=== PATIENT | male | born 1960 | race Asian ===

== ENCOUNTER 2017-04-15 11:15 | Inpatient (IN) | payer BC ==
[2017-05-13] MEDS ORDERED: morphINE PF 5 MG/10 ML INJ IT ONE (08:00)
[2017-05-13] MEDS ORDERED: GABAPENTIN 300 MG CAP PO ONE ×2 (08:00→10:30)
[2017-05-13] MEDS ORDERED: ceFAZolin 2 GM/SWFI 2 GM/20 ML SYR IVP ONE (08:00)
[2017-05-13] MEDS ORDERED: ACETAMINOPHEN 500 MG TAB PO ONE ×2 (08:00→10:30)
[2017-05-13] MEDS ORDERED: BUPIVACAINE 0.25% 30 ML SDV ONE (09:13)
[2017-05-13] MEDS ORDERED: CHLORHEXIDINE GLUC HIBICLENS 118 ML BTL TP ONE (09:14)
[2017-05-13] MEDS ORDERED: THROMBIN (BOVINE) 20,000 UNIT VIAL TP ONE (09:14)
[2017-05-13] MEDS ORDERED: CITRATE DEXTROSE SOLN 500 ML BAG ONE (09:15)
[2017-05-13] MEDS ORDERED: BACITRACIN 50,000 UNITS/10 ML SYR IRR ONE (09:15)
[2017-05-13] MEDS ORDERED: LIDOCAINE 1% 2 ML INJ ID PRN (10:15)
[2017-05-13] MEDS ORDERED: LR 1,000 ML IV ONE (10:15)
[2017-05-13] MEDS ORDERED: ceFAZolin 2 GM/SWFI 20 ML SYR IVP ONE (10:30)
--- NOTE | 2017-05-13 11:01 | PDHPUP ---
History & Physical Update H&P update statement: This history and physical update is based on an assessment of the patient which was completed after admission or registration (within 24 hours), but prior to the surgery/procedure. H&P update: H&P reviewed & patient examined, no change in patient's condition since H&P completed (Consents signed and site marked. All questions answered. )
[2017-05-13] MEDS ORDERED: SCOPOLAMINE HYDROBROMIDE 1 MG/3 DAYS PATCH TD ONE (11:18)
[2017-05-13] MEDS ORDERED: MIDAZOLAM 2 MG/2 ML VIAL IVP ONE (11:18)
--- NOTE | 2017-05-13 11:20 | PDANEPAE ---
ANE History of Present Illness spinal stenosis ANE Past Medical History - Cardiovascular History Hx Hypertension: Yes Hx Arrhythmias: No Hx Chest Pain: No Hx Coronary Artery / Peripheral Vascular Disease: No Hx CHF / Valvular Disease: No Hx Palpitations: No Cardiovascular History Comment: mild HTN x 10 yrs. - Pulmonary History Hx COPD: No Hx Asthma/Reactive Airway Disease: No Hx Recent Upper Respiratory Infection: No Hx Oxygen in Use at Home: No Hx Sleep Apnea: No Sleep Apnea Screening Result - Last Documented: Negative - Neurologic History Hx Cerebrovascular Accident: No Hx Seizures: No Hx Dementia: No - Endocrine History Hx Diabetes: No - Renal History Hx Renal Disorders: No - Liver History Hx Hepatic Disorders: No - Neurological & Psychiatric Hx Hx Neurological and Psychiatric Disorders: Yes Neurological / Psychiatric History Comment: 6 mos s/p L4/L5 fusion pronounced numbness L leg to front of L ft; sl less numbness down R leg to R heel. Atrophied muscles-legs. - Cancer History Hx Cancer: No - Congenital Disorder History Hx Congenital Disorders: No - GI History Hx Gastrointestinal Disorders: No - Other Health History Other Health History: "finger tips -crack"-winter dryness - Chronic Pain History Chronic Pain: Yes (front L ft/leg muscles) - Surgical History Prior Surgeries: L4/L5 fusion 2-14 ANE Review of Systems Review of Systems: - Exercise capacity METS (RN): 4 METS ANE Patient History - Allergies Allergies/Adverse Reactions: No Known Allergies Allergy (Verified 03/26/17 15:16) - Home Medications Home Medications: Aspirin [Aspirin 81mg (*)] 81 mg PO DAILY 03/25/17 [Last Taken 03/18/17] Ibuprofen [Motrin (*)] 200 mg PO BID PRN 03/25/17 [Last Taken 05/06/17] Lisinopril [Zestril 10 mg (*)] 10 mg PO DAILY 03/25/17 [Last Taken 05/12/17 07: 00] - NPO status NPO Since - Liquids (Date): 05/13/17 NPO Since - Liquids (Time): 08:00 NPO Since - Solids (Date): 05/12/17 NPO Since - Solids (Time): 20:00 - Smoking Hx Smoking Status: Never smoked ANE Labs/Vital Signs - Vital Signs Blood Pressure: 146/83 Heart Rate: 89 Respiratory Rate: 18 O2 Sat (%): 94 Height: 173.99 cm Weight: 83.915 kg ANE Physical Exam - Airway Neck exam: FROM Mallampati Score: Class 2 Mouth exam: normal dental/mouth exam - Pulmonary Pulmonary: no respiratory distress - Cardiovascular Cardiovascular: regular rate and rhythym - ASA Status ASA Status: II ANE Anesthesia Plan Anesthesia Plan: general endotracheal anesthesia Lines/Monitors: arterial line
[2017-05-13] MEDS ORDERED: fentaNYL 100 MCG/2 ML INJ ONE ×3 (11:42→16:32)
[2017-05-13] MEDS ORDERED: HYDROmorphONE/DILAUDID 2 MG/ML INJ ONE (11:42)
[2017-05-13] MEDS ORDERED: PROPOFOL 200 MG/20 ML VIAL ONE (11:43)
[2017-05-13] MEDS ORDERED: KETAMINE 200 MG/20 ML VIAL ONE (12:14)
[2017-05-13] MEDS ORDERED: PROPOFOL/EMULSION 500 MG/50 ML BOTTLE IV ONE ×2 (12:14→14:50)
[2017-05-13] MEDS ORDERED: PHENYLEPHRINE HCL 100 MCG/ML SYR ONE (15:24)
[2017-05-13] MEDS ORDERED: ONDANSETRON 4 MG/2 ML VIAL ONE (15:25)
[2017-05-13] MEDS ORDERED: DEXAMETHASONE 4 MG/ML VIAL ONE (15:25)
[2017-05-13] MEDS ORDERED: PHENYLEPHRINE 10 MG/ML SDV ONE (15:25)
[2017-05-13] MEDS ORDERED: ROCURONIUM 50 MG/5 ML VIAL ONE (15:25)
[2017-05-13] MEDS ORDERED: OXYCODONE/APAP 5/325 TAB PO PRN (15:36)
[2017-05-13] MEDS ORDERED: ONDANSETRON 4 MG/2 ML VIAL IVP PRN ×2 (15:36→16:13)
[2017-05-13] MEDS ORDERED: NALOXONE HCL 0.4 MG/ML INJ IVP PRN (15:36)
[2017-05-13] MEDS ORDERED: PROMETHAZINE HCL 25 MG/ML INJ IVP PRN (15:36)
[2017-05-13] MEDS ORDERED: POLYETHYLENE GLYCOL 3350 17 GM PKT PO PRN (16:13)
[2017-05-13] MEDS ORDERED: MAGNESIUM HYDROXIDE 30 ML UDCUP PO PRN (16:13)
[2017-05-13] MEDS ORDERED: ONDANSETRON DISINTEGRATING 4 MG TAB PO PRN (16:13)
[2017-05-13] MEDS ORDERED: BISACODYL 10 MG SUPP PR PRN (16:13)
[2017-05-13] MEDS ORDERED: LACTULOSE 20 GM/30 ML UDCUP PO PRN (16:13)
[2017-05-13] MEDS ORDERED: HYDROmorphONE/DILAUDID 1 MG/ML INJ IVP PRN (16:13)
[2017-05-13] MEDS ORDERED: diphenhydrAMINE 25 MG CAP PO PRN (16:13)
[2017-05-13] MEDS ORDERED: NS W/ 20 KCl/L 1,000 ML IV SCH (16:15)
--- NOTE | 2017-05-13 16:19 | POSTANESTH ---
Post Anesthetic Evaluation Cardiovascular Status: Normal, Stable Respiratory Status: Normal, Stable Level of Consciousness/Mental Status: Can Participate in Eval Pain Control: Adequate, Prn Tx Ordered Nausea/Vomiting Control: Adequate, Prn Tx Ordered Complications Possibly Related to Anesthesia: None Noted
--- NOTE | 2017-05-13 16:25 | POSTOPPROG ---
Post Op Note Date of Operation: 05/13/17 Surgeon: Jose Coronado Wage Conciliator: Genie Moreau PA-C Anesthesiologist: Mark Anesthesia: GET(General Endotracheal) Pre-op Diagnosis: lumbar stenosis Post-op Diagnosis: same Indication: nerve compression, radiculopathy Procedure: L45 hardware removal, L2-4 laminectomy, TLIFs, posterior fusion Findings: See dictation Inf/Abcess present in the surg proc area at time of surgery?: No Depth: Organ Space EBL: 100-500 Complications: none Drains: Adan Cox Specimen(s): hardware swab sent for culture PA Addendum - Addendum .: S: Pt awake in PACU, denies pain O: Groggy but awakens easily Answers questions appropriately NAD VSS MAEx4 Motor 5/5 BUE/BLE +LT Incision dressed cdi [id number] Castellano A: 56 yo M s/p L45 hardware removal, L2-4 laminectomy, TLIFs, posterior fusion P: PT/OT Pain management Brace when OOB TEDs, SCDs, lovenox POD#1 Post op xrays pending BRIEN castellano in AM Monitor BILLY output Call NS with any issues D/w Dr Coronado
[2017-05-13] MEDS ORDERED: HYDROmorphONE/DILAUDID 1 MG/ML INJ ONE (16:31)
[2017-05-13] MEDS: HYDROmorphONE/DILAUDID 1 MG/ML INJ IVP PRN ×2 (16:34→16:55)
[2017-05-13] MEDS: fentaNYL 100 MCG/2 ML INJ IVP PRN ×2 (16:45→17:09)
[2017-05-13] MEDS: POLYETHYLENE GLYCOL 3350 17 GM PKT PO SCH (21:24)
[2017-05-13] MEDS: ACETAMINOPHEN 500 MG TAB PO SCH (21:24)
[2017-05-13] MEDS: FAMOTIDINE 20 MG TAB PO SCH (21:24)
[2017-05-13] MEDS: SENNOSIDES/DOCUSATE SODIUM TAB PO SCH (21:24)
[2017-05-13] MEDS: ceFAZolin 2 GM/SWFI 2 GM/20 ML SYR IVP SCH (21:24)
[2017-05-13] MEDS ORDERED: ceFAZolin 2 GM/DEXTROSE 100 ML IV SCH (22:00)
--- NOTE | 2017-05-14 02:06 | GOP ---
[f rep st] OPERATIVE REPORT DATE OF OPERATION: 05/13/2017 SURGEON: Jose Coronado MD COW TESTER: Delfina Moreau, SURAJ. ANESTHESIA: General. PREOPERATIVE DIAGNOSIS: 1. Adjacent level breakdown, L2-L3, L3-L4, with history of prior spinal fusion, L4-L5. 2. Lumbar spondylosis, spinal stenosis, lower extremity radiculopathy. 3. Treatment refractory to nonoperative intervention. POSTOPERATIVE DIAGNOSIS: 1. Adjacent level breakdown, L2-L3, L3-L4, with history of prior spinal fusion, L4-L5. 2. Lumbar spondylosis, spinal stenosis, lower extremity radiculopathy. 3. Treatment refractory to nonoperative intervention. PROCEDURE PERFORMED: 1. Posterior arthrodesis with approach to L2, L3, L4, L5. 2. Posterolateral fusion with bilateral pedicle screw placement into L2, L3, and L4, with the [employer] Solera 4.75 system. 3. Exploration and removal of prior lumbar nonsegmental hardware at L4 and L5 from the [employer] system. 4. Posterolateral fusion on the right between L2 and L4 with morselized autograft and allograft. 5. Decompressive laminectomy with bilateral medial facetectomies, L2-L3, L3-L4. 6. Left-sided L2-L3 transforaminal lumbar interbody fusion with an 8 x 28 mm titanium PEEK elevated cage filled with morselized autograft. 7. Left-sided L3-L4 transforaminal lumbar interbody fusion with a 9 x 28 mm titanium PEEK elevated c age with morselized autograft. 8. Use of intraoperative 3D Stealth navigation. 9. Use of intraoperative fluoroscopy, less than 1 hour physician time. 10. Use of neuromonitoring. 11. Use of operating microscope. 12. Injection of preservative-free intrathecal narcotics. FINDINGS: SPECIMENS: Cultures were taken from the patient's old hardware and sent to Microbiology. ESTIMATED BLOOD LOSS: 200 mL. INDICATIONS: Mr. Gutierres is a 56-year-old gentleman who has undergone a prior L4-L5 fusion several years ago from which he did quite well. He presented with lower extremity radiculopathy, left greate r than right; evidence of severe spinal stenosis, L3-L4; and moderate to severe stenosis, L2-L3, with spondylosis L2 through L4. After discussion of risks, benefits, and alternatives, after failing non operative intervention, we decided to proceed forth with surgery as described above. DESCRIPTION OF PROCEDURE: Patient was brought to the operating theater and underwent general endotra cheal anesthesia without complications. He had Venodynes, DAVIAN hose, and the appropriate lines placed by Anesthesia. He was then flipped prone onto the Adan table, and all bony processes inspected a nd padded. The lower lumbar region incorporating his prior lumbar incision was identified and marked , and incision then infiltrated with Marcaine with epinephrine. The incision was taken down initiall y with the scalpel blade, and then using monopolar, taken down through the midline through the lumbod orsal fascia. Subperiosteal dissection carried out to the transverse process of L2, L3. At the leve l of L4, we were able to expose the prior pedicle screws at L4 and then subsequently exposed the flakita bridger of the hardware down to L5. Deep retractors were placed to maintain our exposure, and we confi rmed our level using lateral fluoroscopy. At this point, we removed the sequential cap screws at jarett ateral L4 and L5 levels and passed them off the field. We then removed the bilateral rods between L4 -L5 and passed them off the field. We then explored the hardware, and he was noted to be solidly fus ed upon a trial of distraction there. We subsequently removed the bilateral L4 and L5 pedicle screws and replaced the bilateral L4 screws with 7.5 x 40 mm screw, on the left at L4 with 7.5 x 45 mm scre w, on the right at L4 from [employer] Solera 4.75 system. We attached the 3D Stealth navigation clamp to the spinous process of L4 and completed a 3D Stealth navigation spin. Using 3D Stealth navigatio n, we placed the airplane pilot crop dusting holes for the bilateral pedicle screws at L2, L3. All holes were manually pal pated with no CT cortical breaches. We then tapped and placed 6.5 x 50 mm screw bilaterally in L2 an d L3 from the [employer] Solera 4.75 system. Another 3D Stealth navigation spin demonstrated good andrés cement of the hardware. At this point, the microscope was brought into field to assist with microsco pic dissection and maintain illumination and magnification. Using a combination of bur tip on the dr ill bit, Kerrison punches, and [place]ell rongeur, we completed a decompressive laminectomy with bilater al medial facetectomies, L2-L3 and L3-L4. We completed aggressive facetectomies on the left side at L2-L3 and L3-L4 and foraminotomies and unroofed both of the nerves between the L2-L3 and L3-4 foramin a. When I moved up to L2-L3, we distracted the L2-3 disk space and completed a left-sided L2-3 diske ctomy. We prepared the cartilaginous endplates and measured interbody space. We then placed an 8 x 28 mm titanium PEEK elevated cage with morselized autograft anteriorly toward the midline. We packed additional morcellized autograft in the disk space interbody fusion. We let down distraction, moved down to L3-L4 where we distracted the L3-L4 disk space and completed a left-sided L3-L4 diskectomy. We prepared the cartilaginous endplates and measured interbody space. We then placed a 9 x 28 mm ti tanium PEEK elevated cage with morselized autograft anteriorly toward the midline. We packed additio nal morcellized autograft into the disk space interbody fusion. At this point, we let down the distr action, decorticated on the right side between L2 and L4. We placed 2 lordotic rods into the heads o f the screws between L2 and L4 and carried them down with cap screws, which were then tightened per [employer] manufacture's setting. The wound was irrigated copiously with bacitracin irrigation. We injected preservative-free intrathecal narcotics. Left morselized autograft and allograft on the right side between L2 and L4 from the posterolateral fusion. A drain was left in the subfascial space. The wou nd was then closed in multiple layers using Vicryl sutures in the deep layers and Dermabond for the s kin. Patient's wounds were dressed sterilely. He was then flipped supine onto the transfer cart, wh ere he was awakened, extubated, and taken to the recovery room in stable condition. There were no complications and no noted changes on neuromonitoring throughout the procedure. COMPLICATIONS: None. /[id number]/MODL
[2017-05-14] MEDS: ceFAZolin 2 GM/SWFI 2 GM/20 ML SYR IVP SCH (03:09)
[2017-05-14] MEDS: ACETAMINOPHEN 500 MG TAB PO SCH ×3 (05:56→22:04)
--- NOTE | 2017-05-14 08:49 | SOAPPROG ---
SOAP Progress Note Assessment/Plan: Assessment: 57 yo M POD #1 L4/5 hardware removal and L2-L4 TLIF Plan: stable and doing great overall :) PT/OT keep BILLY x-rays today scd/jon/lovenox for dvt prophylaxis likely dc home tomorrow please call with neuro changes discussed with Dr Coronado 05/14/17 08:47 Subjective: soreness in back, no leg pain, continued general leg weakness. Objective: Vital Signs Temp Pulse Resp BP Pulse Ox 36.9 C 73 16 94/70 L 97 05/14/17 07:22 05/14/17 07:22 05/14/17 07:22 05/14/17 07:22 05/14/17 07:22 Microbiology 05/13/17 12:54 Gram Stain - Final Back - Eswab 05/13/17 05/14/17 05/15/17 05:59 05:59 05:59 Intake Total 3060 800 Output Total 625 1400 Balance 2435 -600 AAOx4, +FC PERRL, EOMI, no facial droop 5/5 + light touch C/D/I ICD10 Worksheet Patient Problems: Problems Problem Status Onset Fusion of spine of lumbar region Acute - ICD10 Problem Qualifiers (1) Fusion of spine of lumbar region
[2017-05-14] MEDS: FAMOTIDINE 20 MG TAB PO SCH ×2 (09:20→22:03)
[2017-05-14] MEDS: oxyCODONE IR 5 MG TAB PO PRN ×4 (09:23→22:02)
[2017-05-14] MEDS: LISINOPRIL 10 MG TAB PO SCH (09:30)
[2017-05-14] MEDS: POLYETHYLENE GLYCOL 3350 17 GM PKT PO SCH ×3 (09:32→22:50)
[2017-05-14] MEDS: SENNOSIDES/DOCUSATE SODIUM TAB PO SCH ×2 (09:32→22:03)
[2017-05-14] MEDS ORDERED: PATCH REMOVAL 1 EA PATCH TD ONE (11:30)
--- NOTE | 2017-05-14 15:00 | ASMTCMCOM ---
CM Note CM Note Notes: Pt POD #1 hardware removal and TKIF. OT rec home, PT eval pending. Pt resides with . CM to follow for d/c needs. Date Signed: 05/14/2017 02:46 PM Electronically Signed By:MARIAN Maya
[2017-05-14] MEDS ORDERED: ENOXAPARIN 40 MG/0.4 ML SYR SC SCH (16:00)
[2017-05-14] MEDS: METHOCARBAMOL 750 MG TAB PO PRN (22:02)
[2017-05-14] MEDS: ENOXAPARIN 40 MG/0.4 ML SYR SC SCH (22:04)
[2017-05-15] MEDS: oxyCODONE IR 5 MG TAB PO PRN ×6 (02:21→23:49)
[2017-05-15] MEDS: METHOCARBAMOL 750 MG TAB PO PRN ×3 (05:58→19:27)
[2017-05-15] MEDS: ACETAMINOPHEN 500 MG TAB PO SCH ×3 (05:58→22:07)
--- NOTE | 2017-05-15 08:15 | NEUSURGPN ---
Assessment/Plan: 57 yo M s/p L45 hardware removal with L2-4 laminectomy/TLIFs, posterior fusion POD#2 Plan: PT/OT Brace when OOB Burning with urination - monitor, if not improving will get UA keep BILLY - remove at 12noon and change dressing x-rays show stable hardware scd/jon/lovenox for dvt prophylaxis likely dc home later today vs tomorrow pending clinical course please call with neuro changes Pt seen by and discussed with Dr Coronado Subjective: Pt resting in bedside chair, had increased pain overnight and hadn't taken pain meds. Walking well. Objective: AAOx3 NAD VSS MAEx4 Motor 5/5 BLE Brace on JPx1 productive +LT Urinary Catheter in Place: No Catheter Insertion Date: 05/13/17 - Physician Discussed Patient with DrLeslie: Cliff Patient Seen by : Cliff Neurosurgery Physical Exam - Vitals, I&O, Labs I and O 05/14/17 05/15/17 05/16/17 05:59 05:59 05:59 Intake Total 3060 1250 Output Total 625 1650 Balance 2435 -400 Weight 83.915 kg Intake: Oral (ml) 310 1250 IV Intake (ml) 2750 Output: Urine (ml) 350 1400 Catheter 350 1400 Estimated Blood Loss (ml) 200 Emesis (ml) 0 BILLY Drain Output (ml) 75 250 Back Adan Cox 75 250 Other: Intake Quantity Yes Sufficient Output Comment Toilet Instructed patient to use urinal to get good measurement Number of Voids Toilet 3 Microbiology 05/13/17 12:54 Gram Stain - Final Back - Eswab Vital Signs Temp Pulse Resp BP Pulse Ox 36.7 C 79 16 120/74 97 05/15/17 04:00 05/15/17 04:00 05/15/17 04:00 05/15/17 04:00 05/15/17 04:00 Laboratory Results 05/14/17 15:19 ICD10 Worksheet Patient Problems: Problems Problem Status Onset Fusion of spine of lumbar region Acute
[2017-05-15] MEDS: SENNOSIDES/DOCUSATE SODIUM TAB PO SCH ×2 (10:23→22:08)
[2017-05-15] MEDS: FAMOTIDINE 20 MG TAB PO SCH ×2 (10:24→22:12)
[2017-05-15] MEDS: POLYETHYLENE GLYCOL 3350 17 GM PKT PO SCH ×3 (10:31→22:08)
[2017-05-15] MEDS: LISINOPRIL 10 MG TAB PO SCH (10:31)
[2017-05-15] MEDS: TAMSULOSIN HCL 0.4 MG CAP PO SCH (12:06)
[2017-05-15 16:02] VITALS: RESP 16
[2017-05-15] MEDS: ENOXAPARIN 40 MG/0.4 ML SYR SC SCH (22:11)
[2017-05-16] MEDS: METHOCARBAMOL 750 MG TAB PO PRN ×2 (04:20→12:18)
[2017-05-16] MEDS: oxyCODONE IR 5 MG TAB PO PRN ×3 (04:21→12:18)
[2017-05-16] MEDS: ACETAMINOPHEN 500 MG TAB PO SCH (08:01)
[2017-05-16 08:03] VITALS: BP 118/86; PULSE 77; TEMP 98.8; O2SAT 99
--- NOTE | 2017-05-16 08:33 | NEUSURGPN ---
Assessment/Plan: 57 yo M s/p L45 hardware removal with L2-4 laminectomy/TLIFs, posterior fusion POD#3 Plan: PT/OT Brace when OOB Burning with urination and retention - UA negative for UTI, likely related to castellano placement and catheter. Flomax started. Will refer to urology as outpatient. BILLY removed x-rays show stable hardware scd/jon/lovenox for dvt prophylaxis DC to home today please call with neuro changes Pt discussed with Dr Coronado Subjective: Pt resting at edge of bed, continued back pain. Continued burning with urination. Objective: AAOx3 NAD VSS MAEx4 Motor 5/5 BLE +LT Incision dressed cdi Urinary Catheter in Place: No Catheter Insertion Date: 05/13/17 - Physician Discussed Patient with : Cliff Neurosurgery Physical Exam - Vitals, I&O, Labs I and O 05/15/17 05/16/17 05/17/17 05:59 05:59 05:59 Intake Total 1250 700 Output Total 1650 930 Balance -400 -230 Intake: Oral (ml) 1250 700 Output: Urine (ml) 1400 930 Catheter 1400 600 Urinal 330 BILLY Drain Output (ml) 250 Back Adan Cox 250 Other: Intake Quantity Yes Sufficient Output Comment Toilet Instructed patient to use urinal to get good measurement Number of Voids Toilet 3 2 Urinal 1 Bladder Scan Volume (ml) Toilet 597 Urinal 351 Microbiology 05/13/17 12:54 Gram Stain - Final Back - Eswab Vital Signs Temp Pulse Resp BP Pulse Ox 37.1 C 77 16 118/86 H 99 05/16/17 07:52 05/16/17 07:52 05/16/17 07:52 05/16/17 07:52 05/16/17 07:52 Laboratory Results 05/14/17 15:19 ICD10 Worksheet Patient Problems: Problems Problem Status Onset Fusion of spine of lumbar region Acute
--- NOTE | 2017-05-16 11:28 | ASMTCMCOM ---
CM Note CM Note Notes: Therapies clear pt for home, no CM d/c needs identified. Date Signed: 05/16/2017 11:28 AM Electronically Signed By:MARIAN Maya
[2017-05-16] MEDS: POLYETHYLENE GLYCOL 3350 17 GM PKT PO SCH ×2 (11:47→12:22)
[2017-05-16] MEDS: LISINOPRIL 10 MG TAB PO SCH (11:47)
[2017-05-16] MEDS: TAMSULOSIN HCL 0.4 MG CAP PO SCH (12:18)
[2017-05-16] MEDS: FAMOTIDINE 20 MG TAB PO SCH (12:19)
[2017-05-16] MEDS: SENNOSIDES/DOCUSATE SODIUM TAB PO SCH (12:29)
== END 2017-05-16 14:29 | disposition home or self-care (01) | DRG 455 ==
LOC: F3N 05-13 10:07
PROVIDERS: ADMIT Neurological Surgery; ATTEND Neurological Surgery
DX: M48.061 Spinal stenosis, lumbar region without neurogenic claudication (principal); M47.26 Other spondylosis with radiculopathy, lumbar region; Z98.1 Arthrodesis status; I10 Essential (primary) hypertension
CPT/HCPCS: 82947-QW; 87186-90; 97116-GP; 97161-GP; 97165-GO; 97535-GO; C1713; J0171; J0690; J1100; J1170; J1650; J2250; J2270; J2274; J2370; J2405; J2704; J3010; J7060